=== PATIENT | male | born 1990 | race Caucasian/White ===

== ENCOUNTER 2017-04-06 12:08 | Emergency (ER) | payer OTHER ==
[2017-04-06] MEDS ORDERED: BUPIVACAINE HCL/PF 0.5% 30 ML VIAL ONE (12:32)
--- NOTE | 2017-04-06 13:16 | RADIOLOGY REPORT ---
HISTORY: Crushed left middle finger. COMPARISON: None. FINDINGS: 3 views of the hand obtained. Comminuted fracture of the distal phalangeal tuft of the long finger. No significant displacement. There is no lytic or sclerotic lesion. There is no soft tissue swellin g. There is normal alignment and mineralization. IMPRESSION: Fracture of the distal phalangeal tuft of the third finger. Final Electronic Signature: This report was electronically signed by Sp Maldonado MD on 04/06/2017 1:14 PM. priscilla /
--- NOTE | 2017-04-06 14:52 | ER PHYSICIAN DOCUMENTATION ---
Physician Documentation [facility] Name:Oswaldo Gunderson Age:26 yrs Sex:Male :1990 Arrival Date:04/06/2017 Time:12:08 Bed1 Private MD: Bin Raines Disposition: 04/06/17 14:32 Discharged to Home/Self Care. Impression: Crush Injury to Finger, Finger Laceration, Open Wound of Finger with Nail Damage. - Condition is Good. - Discharge Instructions: CRUSH INJURY, Hand/Finger, FINGER LACERATION - LACERATION, Hand. - Prescriptions for Keflex 500 mg Oral Capsule - take 1 capsule by ORAL route every 6 hours for 10 days; 40 capsule. Greene 5- 325 mg Oral - take 1 tablet by ORAL route every 6 hours As needed; 15 tablet. Zofran 4 mg Oral Tablet - take 1-2 tablet by ORAL route every 4-6 hours As needed; 10 tablet. - Medical Reconciliation form form. - Follow up: Private Physician; When: 4- 6 days; Reason: Recheck today's complaints, Continuance of care. - Problem is new. - Symptoms have improved. HPI: 04/06 12:22 This 26 yrs old Male presents to ER via Walk In with complaints of Laceration tl1 - FINGER L HAND. 12:22 The patient or guardian reports a contusion, swelling, tenderness. The complaints tl1 affect the dorsal aspect of distal phalanx of left middle finger and palmar aspect of distal phalanx of left middle finger. Context: The problem was sustained at work, resulted from fire hose pinching the tip of his left long finger during a competition related to work. Onset: The symptom(s)/episode began/occurred suddenly, just prior to arrival. Historical: - Allergies: No known drug Allergies; - Home Meds: 1. None - PMHx: None; - PSHx: None; - Tetanus: < 10 years. - Ebola Screening: : Patient negative for fever greater than or equal to 101.5 degrees Fahrenheit, and additional compatible Ebola Virus Disease symptoms. - Immunization history: Flu Vaccine < 1 year. - Social history: Smoking status: Patient states was never smoker of tobacco. ROS: 12:22 MS/extremity: Positive for injury or acute deformity, contusion, ecchymosis, tl1 laceration, pain, swelling, tenderness, of the dorsal aspect of distal phalanx of left middle finger and palmar aspect of distal phalanx of left middle finger. 12:22 All other systems are negative. Exam: 12:22 Constitutional: This is a well developed, well nourished patient who is awake, alert, tl1 and in no acute distress. 12:22 Head/Face: Normocephalic, atraumatic. tl1 12:22 Cardiovascular: Rate: normal. 12:22 Respiratory: Respirations: normal. 12:22 Musculoskeletal/extremity: Extremities: grossly normal except: noted in the dorsal aspect of distal phalanx of left middle finger and palmar aspect of distal phalanx of left middle finger: contusion, laceration, swelling, tenderness, 4 irregular linear, circumfrential discontinuous lacerations at the tip of the left long finger. The volar tip is contused, ecchymotic and a little dusky. Bleeding has stopped. There is a 90% subungual hematoma.. 12:22 Skin: see above. otherwise normal. Vital Signs: 12:14 BP 131 / 84; Pulse 83; Resp 16; Temp 98.9(O); Pulse Ox 91% on R/A; Weight 74.84 kg (R); arc Height 5 ft. 7 in. (170.18 cm) (R); Pain 3/10; 14:50 BP 126 / 74; Pulse 68; Resp 15; Pulse Ox 96% on R/A; Pain 0/10; rh 12:14 Body Mass Index 25.84 (74.84 kg, 170.18 cm) arc Laceration: 12:22 Wound Repair of 3.5cm ( 1.4in ) subcutaneous laceration to dorsal aspect of distal tl1 phalanx of left middle finger and palmar aspect of distal phalanx of left middle finger. Distal neuro/vascular/tendon intact. Anesthesia: Digital block administered with 3 mls of 0.5% marcaine, Digital block administered with 3 mls of 0.5% marcaine. Wound prep: Extensive cleansing, Wound explored, Copious irrigation. Skin closed with 4 4-0 Nylon using Interrupted sutures. Dressed with Bacitracin, tube gauze. Patient tolerated well. MDM: 12:22 Patient medically screened. tl1 12:22 Differential diagnosis: open fracture. Data reviewed: vital signs, nurses notes, tl1 radiologic studies, and as a result, I will discharge patient. Test interpretation: by ED physician or midlevel provider: plain radiologic studies. Counseling: I had a detailed discussion with the patient and/or guardian regarding: the historical points, exam findings, and any diagnostic results supporting the discharge/admit diagnosis, radiology results, the need for outpatient follow up, for definitive care, for a referral to a specialist, a hand specialist, to return to the emergency department if symptoms worsen or persist or if there are any questions or concerns that arise at home. Response to treatment: the patient's symptoms have markedly improved after treatment, and as a result, I will discharge patient. 04/06 13:17 Order name: HAND; [address] [place] [id number]; Complete Time: 06:49 EDMS 04/07 06:48 Interpretation: tuft fx, left middle finger. See radiologist note. tl1 04/06 12:22 Order name: Wound Care; Complete Time: 12:22 04/06 12:22 Order name: ORTHO: Ice Pack; Complete Time: 12:22 Dispensed Medications: 12:22 Drug: Marcaine (0.25 %) 1 application; {Note: Left middle finger - ADMINISTERED BY DR mikal AVINA .} Route: Infiltration; Signatures: Tata Arellano RN RN lc Leigh, Tom, MD MD tl1 Cassi Leung
--- NOTE | 2017-04-06 14:52 | ER NURSING DOCUMENTATION ---
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 Transition of care: Home. Complicating Factors: There are no complicating factors for this patient. 12:19 Method Of Arrival: Walk In Triage Assessment: 12:20 General: Appears in no apparent distress, Behavior is. Pain: Complains of pain in rh dorsal aspect of distal phalanx of left middle finger and palmar aspect of distal phalanx of left middle finger. Neuro: Level of Consciousness is awake, alert, obeys commands, Oriented to person, place, time, event. Derm: Skin is intact, is healthy with good turgor, Skin is pink, warm & dry. Musculoskeletal: Circulation, motion, and sensation intact Range of motion intact in all extremities. Injury Description: Laceration sustained to dorsal aspect of distal phalanx of left middle finger and palmar aspect of distal phalanx of left middle finger is clean, 0.5 to 2.5 cm long, was sustained less than 30 minutes ago. is bleeding a small amount. Historical: - Allergies: No known drug Allergies; - Home Meds: 1. None - PMHx: None; - PSHx: None; - Tetanus: < 10 years. - Ebola Screening: : Patient negative for fever greater than or equal to 101.5 degrees Fahrenheit, and additional compatible Ebola Virus Disease symptoms. - Immunization history: Flu Vaccine < 1 year. - Social history: Smoking status: Patient states was never smoker of tobacco. Screenin:21 Infectious Disease Risk None. Abuse screen: Denies threats or abuse. Denies injuries rh from another. Nutritional screening: No deficits noted. Assessment: 12:21 See Triage Assessment done by same RN. Vital Signs: 12:14 BP 131 / 84; Pulse 83; Resp 16; Temp 98.9(O); Pulse Ox 91% on R/A; Weight 74.84 kg (R); arc Height 5 ft. 7 in. (170.18 cm) (R); Pain 3/10; 14:50 BP 126 / 74; Pulse 68; Resp 15; Pulse Ox 96% on R/A; Pain 0/10; rh 12:14 Body Mass Index 25.84 (74.84 kg, 170.18 cm) arc ED Course: 12:11 Patient arrived in ED. ama 12:12 Triage completed. rh 12:18 Cassi Leung is Primary Nurse. rh 12:19 Wound care to laceration located on left hand was Irrigation Normal Saline Patient arc tolerated well. 12:21 Notified ED Physician of patient's arrival and chief complaint. Dr. Pyle notified. rh 12:22 Bin Pyle MD is Attending Physician. tl1 12:22 Valuables Remains with patient Patient has correct armband on for positive rh identification. Bed in low position. Call light in reach. Side rails up X 1. 12:33 Port Xray Completed. pm1 14:11 Assist Provider Assist provider with laceration repair on palmar aspect of distal rh phalanx of left middle finger and dorsal aspect of distal phalanx of left middle finger that was 2.5 cm. or less using sutures. Set up tray. Performed by Bin Pyle MD Dressed with Tube Gauze Patient tolerated well. Administered Medications: 12:22 Drug: Marcaine (0.25 %) 1 application; {Note: Left middle finger - ADMINISTERED BY DR mikal PYLE .} Route: Infiltration; Outcome: 14:32 Discharge ordered by . tl1 14:50 Discharged to home ambulatory. 14:50 Condition: improved 14:50 Discharge Assessment: Patient awake, alert and oriented x 3. No cognitive and/or functional deficits noted. Patient verbalized understanding of disposition instructions. 14:50 Discharge instructions given to patient, Instructed on discharge instructions, follow up and referral plans. medication usage, Demonstrated understanding of instructions, medications, Prescriptions given X 3. 14:51 Patient left the ED. Signatures: Elly Shirley pm1 Mingo Collado, Reg Reg amBin Rivera MD MD tl1 Shana Sellers, Reg Reg arc Hofsess, Cassi rh
== END 2017-04-06 14:52 | disposition home or self-care (01) ==
LOC: ER 12:08
DX: S62.633B Displaced fracture of distal phalanx of left middle finger, initial encounter for open fracture (principal); S61.313A Laceration without foreign body of left middle finger with damage to nail, initial encounter; W23.0XXA Caught, crushed, jammed, or pinched between moving objects, initial encounter; Y99.0 Civilian activity done for income or pay
CPT/HCPCS: 12042; 99284